=== PATIENT | female | born 1995 | race Caucasian/White ===

== ENCOUNTER → 2016-10-27 | Day surgery (SDC) | payer BC, OTHER ==
[~2016-10-27] VITALS: Ht 132.1 cm; Wt 48.5 kg
[~2016-10-27] MED LIST: FENTAnyl 50 MCG/ML VIAL IV PRN; FENTAnyl 50 MCG/ML VIAL ONE; MEPERIDINE 25 MG INJ IV PRN; ONDANSETRON 4 MG INJ IV PRN; PROPOFOL 20 ML ONE
[2016-10-27 13:43] VITALS: BP 100/77; PULSE 100; RESP 19
--- NOTE | 2016-10-27 13:45 | OPPN ---
Date/Time of Note Date/Time of Note DATE: 10/27/16 TIME: 13:36 Proc Note GI Procedure date: Oct 27, 2016 Pre-procedure Diagnosis History of dysphagia migration of the G-tube Post-procedure Diagnosis Dysphagia Operation Performed Esophagogastroduodenoscopy Percutaneous endoscopic gastrostomy Surgeon: ZEKE HERRERA MD Anesthesia Type: MAC Anesthesiologist: DEUCE WELCH MD Estimated blood loss: none Transfusion Required: no Specimen: none Grafts/Implants: none Grafts/Implants None Tubes/Drains None Complications: no Complications None Pt Condition post procedure: stable Indications Dysphagia Operative\Procedure Findings EGD and PEG Procedure Description After the informed written consent is obtained patient was asked to lay in the supine position Intravenous anesthesia was given by anesthesiologist Dr. Rodriguez When the patient becomes somnolent Olympus video upper endoscope was introduced into the oropharynx Then into the esophagus esophagus appeared normal scope of the stent was advanced into the stomach old gastrostomy site was noted The duodenum appeared normal At this time the skin in the epigastric region was prepared with Betadine and alcohol at the site of the old gastrostomy site The guidewire was introduced through the gastrostomy and found to be entering into the gastric cavity This wire was grabbed with a polypectomy snare and then brought out through the mouth along with endoscope #20 Microvasive G-tube was tied in a loop fashion and then this port brought out to the abdominal wall incision Retention bumper was placed close to the skin Tapered end of the gastrostomy tube was cut the adapter was placed and the procedure was terminated Plan recommend start G-tube feeding in a.m. ZEKE HERRERA MD Oct 27, 2016 13:45
[2016-10-27 13:48] VITALS: BP 92/74; PULSE 100; RESP 19
[2016-10-27 13:53] VITALS: BP 103/74; PULSE 96; RESP 18
[2016-10-27 13:58] VITALS: BP 112/81; PULSE 98; RESP 16
[2016-10-27 14:00] VITALS: BP 111/89; PULSE 94; RESP 14
== END | disposition home or self-care (01) ==
LOC: SDS 11:16
PROVIDERS: ATTEND Internal Medicine Gastroenterology
DX: R13.10 Dysphagia, unspecified (principal); I10 Essential (primary) hypertension; E11.9 Type 2 diabetes mellitus without complications; E78.5 Hyperlipidemia, unspecified
CPT/HCPCS: 43246; J3010